=== PATIENT | female | born 1935 | race Hispanic/Latino ===

== ENCOUNTER 2018-01-16 09:17 | Emergency (ER) | payer OTHER, MEDICARE ==
[~2018-01-16 09:17] MED LIST: AEC81 PO; CALC3.8S NS; CHOL100040 PO; DOCU-116 PO; FELO5TAB31 PO; FENO145T37 PO; METF500T6 PO; OXYB10TA PO; PANT40TA25 PO; SIMV40TA59 PO; TRAM1TAB PO; VERA180T8 PO
[2018-01-16 10:08] LABS: EOSINOPHILS % (AUTO) 1.3 % (0.0-8.0); HEMATOCRIT 38.5 % (36-48); LYMPHOCYTES % (AUTO) 23.2 % (21.0-51.0); MEAN CORPUSCULAR HEMOGLOBIN 27.5 pg (27.0-33.0); MEAN CORPUSCULAR HGB CONC 34.9 g/dL (32.0-36.0); MEAN CORPUSCULAR VOLUME 78.8 fL (79-99); MONOCYTES % (AUTO) 9.1 % (3.0-13.0); NEUTROPHILS % (AUTO) 65.4 % (40.0-77.0); PLATELET COUNT (AUTO) 249 K/uL (130-400); RED BLOOD CELL COUNT(AUTO) 4.88 MIL/uL (4.00-5.50); RED CELL DISTRIBUTION WIDTH 14.2 % (11.0-15.5); WHITE BLOOD COUNT (AUTO) 10.5 K/uL (4.8-10.8)
[2018-01-16 10:24] LABS: INR 0.99 (0.85-1.15); PARTIAL THROMBOPLASTIN TIME 26.7 SEC (26.3-35.5); PROTHROMBIN TIME 10.4 SEC (9.6-11.6)
[2018-01-16] MEDS ORDERED: TRAMADOL HCL 50 MG TABLET ONE (10:41)
[2018-01-16 10:58] LABS: APPEARANCE,URINE SL CLOUDY (CLEAR); BILIRUBIN,URINE NEGATIVE (NEGATIVE); COLOR,URINE YELLOW (YELLOW); GLUCOSE, URINE (UA) NEGATIVE (NEGATIVE); KETONES,URINE NEGATIVE (NEGATIVE); LEUKOCYTE ESTERASE ,URINE SMALL (NEGATIVE); NITRATE,URINE NEGATIVE (NEGATIVE); OCCULT BLOOD,URINE SMALL (NEGATIVE); PH,URINE 5.5 (5.0-8.0); PROTEIN,URINE NEGATIVE (NEGATIVE); UROBILINOGEN,URINE 0.2 mg/dL (0.2-1.0)
[2018-01-16 11:13] LABS: ERYTHROCYTE SEDIMENTATION RATE 25 MM/HR (0-15)
[2018-01-16 11:14] LABS: SQUAMOUS EPITHELIAL CELL,UR Few /HPF (0-2)
[2018-01-16 11:15] LABS: BACTERIA,URINE Few /HPF (None Seen)
[2018-01-16 11:18] LABS: WBC,URINE 0-1 /HPF (0-1); YEAST,URINE BUDDING Few /HPF (None Seen)
[2018-01-16 11:18] LABS: ALBUMIN 3.7 g/dL (3.5-5.0); BILIRUBIN,TOTAL 0.7 mg/dL (0.2-1.0); CREATINE KINASE MB 0.8 ng/mL (0.5-3.6); CREATININE 1.3 mg/dL (0.5-1.5); CRP QUANTITATIVE 25.1 mg/L (0.00-9.0); POTASSIUM 3.7 mmol/L (3.5-5.1); TOTAL PROTEIN, SERUM 7.6 g/dL (6.0-8.3)
== END 2018-01-16 12:45 | disposition home or self-care (01) ==
LOC: EDH 09:17
DX: M76.61 Achilles tendinitis, right leg (principal); E11.9 Type 2 diabetes mellitus without complications; I10 Essential (primary) hypertension
CPT/HCPCS: 36415; 71045; 73620; 80053; 81001; 82550; 82553; 84484; 85025; 85610; 85651; 85730; 86140; 93005; 93971

== ENCOUNTER → 2020-02-08 | Outpatient (CLI) | payer OTHER, MEDICARE ==
[~2020-02-08] MED LIST changes: -FELO5TAB31 PO; +FELO5TAB48 PO; +FENO145T26 PO; -FENO145T37 PO; +METF-444 PO; -METF500T6 PO; -OXYB10TA PO; +OXYB10TA30 PO; +VERA180T12 PO; -VERA180T8 PO
== END | disposition home or self-care (01) ==
LOC: RAH 09:21
PROVIDERS: ATTEND Family Medicine
DX: R92.1 Mammographic calcification found on diagnostic imaging of breast (principal)
CPT/HCPCS: 76641; 77066

== ENCOUNTER 2020-04-25 20:08 | Emergency (ER) | payer OTHER, MEDICARE ==
[~2020-04-25 20:08] MED LIST changes: -PANT40TA25 PO; +PANT40TA54 PO
[2020-04-25 20:40] LABS: BASOPHILS % (AUTO) 0.8 % (0.0-5.0); EOSINOPHILS % (AUTO) 1.2 % (0.0-8.0); HEMATOCRIT 38.8 % (36-48); LYMPHOCYTES % (AUTO) 26.6 % (21.0-51.0); MEAN CORPUSCULAR HEMOGLOBIN 28.1 pg (27.0-33.0); MEAN CORPUSCULAR VOLUME 82.7 fL (79-99); MONOCYTES % (AUTO) 7.9 % (3.0-13.0); NEUTROPHILS % (AUTO) 62.8 % (40.0-77.0); PLATELET COUNT (AUTO) 269 K/uL (130-400); RED BLOOD CELL COUNT(AUTO) 4.69 MIL/uL (4.00-5.50)
[2020-04-25 20:58] LABS: CREATININE 1.7 mg/dL (0.5-1.5); POTASSIUM 3.5 mmol/L (3.5-5.1)
[2020-04-25 20:59] LABS: ALBUMIN 4.2 g/dL (3.5-5.0)
[2020-04-25 21:00] LABS: INR 0.9 (0.85-1.15); PROTHROMBIN TIME 9.8 SEC (9.6-11.6)
[2020-04-25 21:10] LABS: BILIRUBIN,TOTAL 0.5 mg/dL (0.2-1.0); TOTAL PROTEIN, SERUM 8.3 g/dL (6.0-8.3)
[2020-04-25 21:11] LABS: RAPID GROUP A STREP NEGATIVE (NEGATIVE)
[2020-04-25 21:14] LABS: APPEARANCE,URINE Clear (CLEAR); BILIRUBIN,URINE Negative (NEGATIVE); COLOR,URINE Yellow (YELLOW); GLUCOSE, URINE (UA) Negative (NEGATIVE); KETONES,URINE Negative (NEGATIVE); LEUKOCYTE ESTERASE ,URINE Trace (NEGATIVE); NITRATE,URINE Negative (NEGATIVE); OCCULT BLOOD,URINE Trace (NEGATIVE); PROTEIN,URINE Negative (NEGATIVE); UROBILINOGEN,URINE 0.2 mg/dL (0.2-1.0)
[2020-04-25 21:38] LABS: BACTERIA,URINE Rare /HPF (None Seen); RBC,URINE 0-1 /HPF (0-1); SQUAMOUS EPITHELIAL CELL,UR Few /HPF (0-2); WBC,URINE 0-1 /HPF (0-1)
[2020-04-25 21:51] LABS: ERYTHROCYTE SEDIMENTATION RATE 24 MM/HR (0-30)
[2020-04-26] MEDS ORDERED: ACETAMINOPHEN 325 MG TAB ONE (00:31)
== END 2020-04-26 00:59 | disposition home or self-care (01) ==
LOC: EDH 20:08
DX: G44.89 Other headache syndrome (principal); Z20.828 Contact with and (suspected) exposure to other viral communicable diseases; E11.9 Type 2 diabetes mellitus without complications; I10 Essential (primary) hypertension; M19.90 Unspecified osteoarthritis, unspecified site
CPT/HCPCS: 36415; 70450; 71045; 80053; 81001; 85025; 85610; 85651; 85730; 87426; 87804 ×2; 87880; 93005; 99285; U0003

== ENCOUNTER 2021-02-02 08:06 | Emergency (ER) | payer OTHER, MEDICARE ==
[2021-02-02 09:16] LABS: BASOPHILS % (AUTO) 0.9 % (0.0-5.0); HEMATOCRIT 40.6 % (36-48); MEAN CORPUSCULAR HEMOGLOBIN 26.9 pg (27.0-33.0); MEAN CORPUSCULAR HGB CONC 33.3 g/dL (32.0-36.0); MONOCYTES % (AUTO) 8.6 % (3.0-13.0); NEUTROPHILS % (AUTO) 61.1 % (40.0-77.0); PLATELET COUNT (AUTO) 231 K/uL (130-400); RED BLOOD CELL COUNT(AUTO) 5.01 MIL/uL (4.00-5.50); RED CELL DISTRIBUTION WIDTH 13.2 % (11.0-15.5)
[2021-02-02] MEDS ORDERED: LIDOCAINE 5% TOPICAL PATCH TP ONE (09:34)
[2021-02-02] MEDS ORDERED: MORPHINE SULFATE 2 MG/ML 1ML SYG ONE (09:35)
[2021-02-02] MEDS ORDERED: DIAZEPAM 5 MG/ML 2 ML SYG ONE (09:36)
[2021-02-02 10:00] LABS: ALBUMIN 3.8 g/dL (3.5-5.0); BILIRUBIN,TOTAL 0.6 mg/dL (0.2-1.0); CREATININE 1.3 mg/dL (0.5-1.5); POTASSIUM 3.7 mmol/L (3.5-5.1); TOTAL PROTEIN, SERUM 7.7 g/dL (6.0-8.3)
== END 2021-02-02 13:47 | disposition home or self-care (01) ==
LOC: EDH 08:06
DX: M47.892 Other spondylosis, cervical region (principal); M62.838 Other muscle spasm; M19.90 Unspecified osteoarthritis, unspecified site; I10 Essential (primary) hypertension; E11.9 Type 2 diabetes mellitus without complications; E78.00 Pure hypercholesterolemia, unspecified
CPT/HCPCS: 36415; 72125; 80053; 82550; 84484; 85025; 85651; 93005; 96374; 96375; 99285; J3360

== ENCOUNTER 2021-02-07 17:37 | Emergency (ER) | payer OTHER, MEDICARE ==
[2021-02-07] MEDS ORDERED: HYDROCODONE/ACETAMINOPHEN 5/325 MG TAB ONE (18:19)
== END 2021-02-07 19:25 | disposition home or self-care (01) ==
LOC: EDH 17:37
DX: M47.892 Other spondylosis, cervical region (principal); M47.894 Other spondylosis, thoracic region; E11.9 Type 2 diabetes mellitus without complications; I10 Essential (primary) hypertension; E78.00 Pure hypercholesterolemia, unspecified; M19.90 Unspecified osteoarthritis, unspecified site